=== PATIENT | female | born 1945 | race Caucasian/White ===

== ENCOUNTER 2020-03-27 00:49 | Outpatient (CLI) | payer MEDICARE, OTHER, SELFPAY ==
--- NOTE | 2020-03-27 | DI.CT_ITS ---
EXAM: CT CHEST/ABD W CLINICAL HISTORY: H/O ESOPHAGEAL CA,C49.A1,S/P EXCISION,SURVEILLANCE SCAN. TECHNIQUE: Imaging Protocol: Axial computed tomography images with coronal and sagittal reformatted images were created and reviewed CONTRAST MATERIAL: Intravenous: Omnipaque 350 Contrast volume:100 ml Oral: None COMPARISON: CT CT CHEST W CONTRAST from 02/11/[address] CHEST W CONTRAST from 02/11/2019 FINDINGS: CHEST: LUNGS: There are no new concerning pulmonary nodules. Mild increased markings in the medial aspect o f the posterior basal segment of the left lower lobe are noted, unchanged.. No pleural effusions. T here are no significant focal findings in trachea and mainstem bronchi. MEDIASTINUM: There is no hilar nor mediastinal adenopathy. There is no subcarinal adenopathy. No si gnificant axillary adenopathy. Visualized thyroid unremarkable. CARDIAC: Heart size is normal. There is no pericardial effusion.Caliber of the thoracic aorta is wit hin normal limits. Surgical clips are seen behind the lower heart anterior to the esophagus. Within the no obvious mass at this level. OSSEOUS: No significant osseous lesions.. ABDOMEN: There is no ascites. LIVER: There are no focal hepatic lesions nor dilatation of intrahepatic ducts. GALLBLADDER/BILIARY: No obvious gallbladder pathology. CBD is not dilated. PANCREAS: No evidence of pancreatic mass nor dilatation of the pancreatic duct. SPLEEN: Spleen is not enlarged. There are no intrasplenic lesions. Splenic and portal veins are topete nt. ADRENALS: There are no significant adrenal masses. KIDNEYS: There is a benign cyst in the inferior pole of the right kidney which measures 1.7 x 1.3 chandra timetres. Smaller cyst in the left kidney. No solid renal masses. Extrarenal pelvis on the right. No hydronephrosis.. ABDOMINAL AORTA: Abdominal aorta is not enlarged and there is no cscjmnbvezagnss-erga-yozrwe adenopat hy. ABDOMINAL WALL/GI: No evidence of significant anterior abdominal wall hernia. No bowel obstruction. 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 No lytic osseous lesions identified in the field of view of this study. The pelvis was not scanned. IMPRESSION: 1. Compared to the prior outside study of 02/11/2019 there is no evidence of new metastatic disease i n the chest at abdomen. Pelvis was not scanned 2. No new pulmonary nodules, pleural effusion, nor intrathoracic adenopathy. 3. No new abdominal findings. 4. No there is significant osseous lesions. RADIATION DOSE DELIVERED: 827.48mGy.cm Total DLP DATA REPOSITORY: All CT scans at this facility are submitted to the National Radiology Data Registry (NRDR) Dose Index Registry (DIR) with the [employer] ([employer]). RADIATION OPTIMIZATION: All CT scans at this facility use at least one of these dose optimization te chniques: automated exposure control; mA and/or kV adjustment per patient size (includes targeted exa ms where dose is matched to clinical indication); or iterative reconstruction.
[2020-03-27 09:15] LABS: ALT 24 U/L (14-59); AST 26 U/L (15-37); Albumin 3.8 g/dL (3.4-5.0); Alkaline Phosphatase 40 U/L (46-116); Anion Gap 2.4 mmol/L (3-11); BUN 22 mg/dL (7-18); Bilirubin, Total 0.5 mg/dL (0.2-1.0); CO2 29.6 mmol/L (21.0-32.0); CREATININE 1.23 mg/dL (0.55-1.02); Calcium 8.9 mg/dL (8.5-10.1); Chloride 101 mmol/L (98-107); Glucose 99 mg/dL (74-106); Potassium 4.3 mmol/L (3.5-5.1); Sodium 133 mmol/L (136-145); Total Protein 6.8 g/dL (6.4-8.2)
[2020-03-27 09:22] LABS: Abs Immature Grans 0.01 10^3/uL (0.0-0.06); Absolute Basophil Count 0.04 10^3/uL (0.0-0.2); Absolute Eosinophil Count 0.22 10^3/uL (0.0-0.7); Absolute Lymphocyte Count 0.63 10^3/uL (1.2-3.4); Absolute Monocyte Count 0.32 10^3/uL (0.1-0.8); Absolute Neutrophil Count 2.59 10^3/uL (1.2-6.7); Eosinophils % 5.8; HCT 29.8 % (36.0-46.0); HGB 9.9 g/dL (11.2-15.7); Immature Grans % 0.3; Lymphocytes % 16.5; MCH 33.8 pg (27.0-33.0); MCHC 33.2 % (32.0-36.0); MCV 101.7 fL (80-95); MPV 9.2 fL (8.0-11.0); Monocytes % 8.4; Nucleated RBC 0 %; Platelet Count 222 10^3/uL (130-400); RBC 2.93 10^6/uL (3.93-5.22); RDW 13.2 % (11.7-14.6); RDW-SD 49.9 fL; WBC 3.81 10^3/uL (4.4-10.8)
[2020-03-27] MEDS: Omnipaque 350 MG/ML 100 ML BTL IJ (09:55)
[2020-03-27] MEDS: Normal Saline - Diluent 50 ML VIAL IV (09:56)
== END 2020-03-27 01:09 ==
PROVIDERS: PCP Family Medicine; Visit Provider Internal Medicine Medical Oncology
DX: C49.A1 Gastrointestinal stromal tumor of esophagus (principal)
CPT/HCPCS: 80053; 71260; 74160; 85025; J3490

== ENCOUNTER 2020-07-24 04:18 | Outpatient (CLI) | payer MEDICARE, OTHER, SELFPAY ==
[2020-07-24 10:07] LABS: Abs Immature Grans 0.01 10^3/uL (0.0-0.06); Absolute Basophil Count 0.05 10^3/uL (0.0-0.2); Absolute Eosinophil Count 0.23 10^3/uL (0.0-0.7); Absolute Lymphocyte Count 0.83 10^3/uL (1.2-3.4); Absolute Monocyte Count 0.44 10^3/uL (0.1-0.8); Basophils % 1.1; Eosinophils % 5.2; HCT 28.6 % (36.0-46.0); HGB 9.4 g/dL (11.2-15.7); Immature Grans % 0.2; Lymphocytes % 18.6; MCH 33.9 pg (27.0-33.0); MCHC 32.9 % (32.0-36.0); MCV 103.2 fL (80-95); MPV 9.3 fL (8.0-11.0); Monocytes % 9.9; Nucleated RBC 0 %; Platelet Count 235 10^3/uL (130-400); RBC 2.77 10^6/uL (3.93-5.22); RDW 13.4 % (11.7-14.6); RDW-SD 51.3 fL; WBC 4.46 10^3/uL (4.4-10.8)
[2020-07-24 10:15] LABS: ALT 32 U/L (14-59); AST 27 U/L (15-37); Albumin 3.9 g/dL (3.4-5.0); Alkaline Phosphatase 47 U/L (46-116); Anion Gap 7.4 mmol/L (3-11); BUN 23 mg/dL (7-18); Bilirubin, Total 0.5 mg/dL (0.2-1.0); CO2 29.6 mmol/L (21.0-32.0); CREATININE 1.2 mg/dL (0.55-1.02); Calcium 9.2 mg/dL (8.5-10.1); Chloride 99 mmol/L (98-107); Estimated GFR 44.04 (mL/min/1.73m2); Glucose 68 mg/dL (74-106); Potassium 4.6 mmol/L (3.5-5.1); Sodium 136 mmol/L (136-145); Total Protein 6.9 g/dL (6.4-8.2)
== END 2020-07-24 04:19 | disposition home or self-care (01) ==
LOC: LBO 04:18
PROVIDERS: PCP Family Medicine; Visit Provider Internal Medicine Medical Oncology
DX: C49.A1 Gastrointestinal stromal tumor of esophagus (principal)
CPT/HCPCS: 36415; 80053; 85025

== ENCOUNTER 2024-11-16 02:37 | Outpatient (CLI) | payer MEDICARE, SELFPAY ==
--- NOTE | 2024-11-16 07:30 | DI.MRI_ITS ---
Exam(s) MR IAC BRAIN WO/W EXAM: MR IAC BRAIN WO/W CLINICAL HISTORY: ? central process,RT SN hearing loss,imbalance. TECHNIQUE: Multiplanar multisequence MRI of the brain and internal auditory canals was performed. CONTRAST MATERIAL: IV Contrast: 11 mL of Dotarem contrast administered. COMPARISON: No exams were available for comparison FINDINGS: VENTRICLES AND EXTRA AXIAL SPACES: Normal in size and morphology for the patient's age. HEMORRHAGE: None. CEREBRAL PARENCHYMA: No focus of restricted diffusion to suggest acute infarct. No space-occupying lesion identified. There are several areas of hyperintense signal seen in the white matter on the T2 and FLAIR images most consistent with chronic microvascular ischemic disease. MIDLINE SHIFT: None. BRAINSTEM/CEREBELLUM: Normal. CALVARIUM: Normal. ENHANCEMENT: No suspicious enhancement identified. VISUALIZED PARANASAL SINUSES/MASTOIDS: Clear. [place]: Normal flow void. PITUITARY GLAND: Unremarkable. IAC/CP ANGLE: The internal auditory canals are within normal limits. The cerebellar pontine angles are unremarkable. No enhancing lesions are seen. Visualized portion of the facial nerves appear within normal limits. OTHER FINDINGS: None. IMPRESSION: 1. Age-related cerebral atrophy and chronic microvascular ischemic disease. 2. No evidence of an acute infarct, intracranial mass or enhancing lesion. DATA REPOSITORY:
[2024-11-16] MEDS: Gadoterate meglumine 20 ML VIAL 11 ML IVP (13:28)
[2024-11-16] MEDS: Normal Saline Flush 10 ML SYR IVP (13:28)
== END 2024-11-16 02:57 ==
LOC: DI 02:41
PROVIDERS: PCP Family Medicine; Visit Provider Otolaryngology
DX: H90.41 Sensorineural hearing loss, unilateral, right ear, with unrestricted hearing on the contralateral side (principal); Z86.69 Personal history of other diseases of the nervous system and sense organs; R26.89 Other abnormalities of gait and mobility
CPT/HCPCS: 70553